=== PATIENT | female | born 1940 | race Caucasian/White ===

== ENCOUNTER 2024-08-01 13:38 | Inpatient (IN) | payer MEDICARE, OTHER ==
[2024-08-01] VITALS (20 sets, daily range): BP systolic 116–156; BP diastolic 45–92
[~2024-08-01] VITALS: Ht 160 cm; Wt 154.1 kg
[~2024-08-01 13:38] MED LIST: APIDRA SC; ASPIRIN EC81 MG PO; CALCIUM 1000 + D PO; CIPROFLOXACN500 MG PO; HUMALOG KWI100 MG/ML SC; LISINOPRIL10 MG PO; LOMOTIL2.5 MG PO; MULTI VIT PO; SIMVASTATIN10 MG PO; SYNTHROID88 MCG PO; TRAZODONE50 MG PO; ZOFRAN ODT4 MG SL
[2024-08-01] MEDS ORDERED: SODIUM CHLORIDE 0.9% 1,000 ML IV ONE (14:00)
[2024-08-01] MEDS ORDERED: ONDANSETRON HCl 4 MG/2 ML SDV IV ONE (14:05)
[2024-08-01 14:11] LABS: BASO% 0.2 % (0-3); EOS% 0.1 % (0-8); HEMATOCRIT 33.8 % (37.0-47.0); HEMOGLOBIN 10.4 g/dl (12.0-16.0); IMMATURE GRANULOCYTES 0.7 % (0.0-5.0); LYMPH% 4.4 % (15-41); MEAN CELL VOLUME 104.6 fL CALC (80.0-100.0); MEAN CORPUSCULAR HGB 32.2 pG CALC (26.0-32.0); MEAN CORPUSCULAR HGB CONC 30.8 g/dL CAL (32.0-36.0); MONO% 5.3 % (2-13); NEUT# 10.25 thou/uL (2.00-7.15); NEUT% 89.3 % (42-76); RED BLOOD COUNT 3.23 mill/uL (4.20-5.60); RED CELL DISTRI WIDTH 14.7 % (11.5-15.5)
[2024-08-01 14:20] LABS: LIPASE 45 u/l (23-300)
[2024-08-01 14:22] LABS: ALBUMIN 3.9 g/dL (3.2-5.0); CREATININE 1.4 mg/dL (0.5-1.0); TOTAL PROTEIN 6.4 g/dL (6.3-8.2)
[2024-08-01 14:34] LABS: BILIRUBIN, TOTAL 1.6 mg/dL (0.02-1.3); POTASSIUM 6.9 mmol/l (3.5-5.1)
[2024-08-01] MEDS ORDERED: CALCIUM GLUCONATE 2 GM in SODIUM CHLORIDE 0.9% 100 ML IV ONE (14:40)
[2024-08-01] MEDS ORDERED: CALCIUM GLUCONATE 1 GM in SODIUM CHLORIDE 0.9% 50 ML IV ONE ×2 (14:40→15:10)
[2024-08-01] MEDS ORDERED: LACTATED RINGER'S 1,000 ML IV ONE (14:40)
[2024-08-01] MEDS ORDERED: ALBUTEROL SULFATE 2.5 MG VIAL IN ONE (14:40)
[2024-08-01] MEDS ORDERED: INSULIN REGULAR (HUMAN) IN SOD 100 ML IV ONE (14:40)
[2024-08-01] MEDS ORDERED: INSULIN REGULAR (HUMAN) 100 UNIT/ML INJ IV ONE (14:40)
[2024-08-01] MEDS ORDERED: SODIUM CHLORIDE 0.9% 50 ML IV ONE ×2 (14:50→15:13)
[2024-08-01] MEDS ORDERED: cefTRIAXone SODIUM 2 GM in SODIUM CHLORIDE 0.9% 100 ML IV ONE (15:10)
[2024-08-01] MEDS ORDERED: CALCIUM GLUCONATE 1 GM/10 ML VIAL IV ONE (15:17)
[2024-08-01 15:33] LABS: URINE BILIRUBIN - DIPSTICK Negative (NEGATIVE); URINE BLOOD DIPSTICK Trace-intact (NEGATIVE); URINE COLOR Yellow; URINE GLUCOSE - DIPSTICK >=1000 mg/dL (NEGATIVE); URINE KETONE >=160 mg/dL (NEGATIVE); URINE LEUK ESTERASE Negative (NEGATIVE); URINE NITRITE - DIPSTICK Negative (Negative); URINE PH 5.5 (4.5-8.0); URINE PROTEIN - DIPSTICK Negative (NEG-TRACE); URINE UROBILINOGEN - DIPSTICK 0.2 E.U./dL (0.2)
[2024-08-01] MEDS ORDERED: DEXTROSE 50% 50 ML/SYR IV PRN (16:10)
[2024-08-01] MEDS ORDERED: POTASSIUM CHLORIDE IN NACL 1,000 ML IV PRN (16:10)
[2024-08-01] MEDS ORDERED: DEXTROSE 5% w/NACL 0.45 1,000 ML IV PRN (16:10)
[2024-08-01] MEDS ORDERED: ONDANSETRON HCl 4 MG/2 ML SDV IV PRN (16:10)
[2024-08-01] MEDS ORDERED: SODIUM CHLORIDE 0.45% 1,000 ML IV PRN (16:10)
[2024-08-01] MEDS ORDERED: SODIUM CHLORIDE 0.9% 1,000 ML IV PRN (16:10)
[2024-08-01] MEDS ORDERED: D5 1/2 NaCL W/KCL 20MEQ 1,000 ML IV PRN (16:10)
[2024-08-01] MEDS ORDERED: POTASSIUM CHLORIDE 20MEQ 100 ML IV PRN (16:10)
[2024-08-01] MEDS ORDERED: MAGNESIUM SULFATE HEPTAHYDRATE 50 ML IV ONE (16:10)
[2024-08-01] MEDS ORDERED: INSULIN REGULAR (HUMAN) IN SOD 100 ML IV PRN (16:10)
[2024-08-01 18:02] LABS: CREATININE 1.1 mg/dL (0.5-1.0); POTASSIUM 4.7 mmol/l (3.5-5.1)
[2024-08-01] MEDS ORDERED: FAMOTIDINE 10MG/ML 2ML SDV IV SCH (21:00)
[2024-08-01 21:37] LABS: POTASSIUM 4.6 mmol/l (3.5-5.1)
[2024-08-01] MEDS ORDERED: INSULIN GLARGINE 100 UNITS/ML SC SCH (22:20)
[2024-08-01] MEDS ORDERED: DEXTROSE 250 ML IV PRN (22:20)
[2024-08-02] VITALS (39 sets, daily range): BP systolic 93–138; BP diastolic 34–100
[2024-08-02 01:47] LABS: POTASSIUM 4.8 mmol/l (3.5-5.1)
[2024-08-02 05:54] LABS: CREATININE 0.9 mg/dL (0.5-1.0); POTASSIUM 4.5 mmol/l (3.5-5.1)
[2024-08-02] MEDS ORDERED: DEXTROSE 250 ML IV PRN (12:55)
[2024-08-02] MEDS ORDERED: ASPIRIN EC 81 MG/TAB PO SCH (14:30)
[2024-08-02] MEDS ORDERED: LISINOPRIL 10 MG/TAB PO SCH (14:30)
[2024-08-02] MEDS ORDERED: INSULIN LISPRO 100 UNITS/ML ML SC SCH ×2 (15:00→17:00)
[2024-08-02] MEDS ORDERED: traZODone HCL 50 MG/TAB PO SCH (21:00)
[2024-08-03] VITALS (9 sets, daily range): BP systolic 103–144; BP diastolic 40–109
[2024-08-03] MEDS ORDERED: LEVOTHYROXINE SODIUM 88 MCG TAB PO SCH (06:00)
[2024-08-03] MEDS ORDERED: FAMOTIDINE 20 MG/TAB PO SCH (09:00)
== END 2024-08-03 09:50 | disposition home health service (06) | DRG 638 ==
LOC: ED 13:38 → ED-I 14:06 → ED 14:06 → ED-I 15:47 → ED 15:58 → ICU 15:59
PROVIDERS: Family Medicine; ADMIT Internal Medicine; ATTEND Internal Medicine
DX: E10.10 Type 1 diabetes mellitus with ketoacidosis without coma (principal); N17.9 Acute kidney failure, unspecified; E87.5 Hyperkalemia; I10 Essential (primary) hypertension; E78.5 Hyperlipidemia, unspecified; E03.9 Hypothyroidism, unspecified; Z79.4 Long term (current) use of insulin; Z96.41 Presence of insulin pump (external) (internal); Z87.81 Personal history of (healed) traumatic fracture
CPT/HCPCS: J0612; J0696; J1815; J2405; J3475